=== PATIENT | male | born 1975 | race Caucasian/White ===

== ENCOUNTER 2020-11-08 14:50 | Emergency (ER) | payer MEDICARE ==
[~2020-11-08 14:50] MED LIST: IBUPROFEN600 MG PO; ZOFRAN4 MG PO
== END 2020-11-08 19:45 | disposition left against medical advice (07) ==
LOC: ER1 14:50
DX: K62.5 Hemorrhage of anus and rectum (principal); Z53.21 Procedure and treatment not carried out due to patient leaving prior to being seen by health care provider

== ENCOUNTER 2020-11-10 16:09 | Emergency (ER) | payer MEDICARE | END 2020-11-10 20:00 | disposition left against medical advice (07) | LOC: ER1 16:09 | DX: K64.9 Unspecified hemorrhoids (principal); Z53.21 Procedure and treatment not carried out due to patient leaving prior to being seen by health care provider ==